=== PATIENT | female | born 1990 | race Caucasian/White ===

== ENCOUNTER 2020-01-30 14:22 | Emergency (ER) | payer BC ==
[~2020-01-30] VITALS: Ht 165.1 cm; Wt 70.9 kg
[2020-01-30 15:40] LABS: COLLECTION METHOD CLEAN CATCH
[2020-01-30 15:44] LABS: BASO # 0.1 (0.0-0.2); BASO % 0.4 % (0.0-2.0); EOS # 0.1 (0.0-0.7); EOS % 1.1 % (0-4.0); GRAN # 7.4 (1.4-6.5); GRAN % 65.3 % (42.2-75.2); LYMPH % 26.8 % (20.0-51.0); MEAN CELL VOLUME 97 fl (80.0-100.0); MEAN CORPUSCULAR HEMOGLOBIN 32 pg (27.0-31.0); MEAN CORPUSCULAR HGB CONC 33 g/dl (33.0-37.0); MEAN PLATELET VOLUME 10.3 fl (7.4-10.4); MONO # 0.7 (0.1-0.6); MONO % 6.1 % (1.7-9.3); PLATELET COUNT 215 K/mm3 (130-400); RED BLOOD COUNT 3.72 M/mm3 (4.10-5.30); REDCELL DISTRIBUTION WIDTH-CV 12.5 % (11.5-14.5)
[2020-01-30 15:54] LABS: MUCOUS Present /lpf; PH 6 (5-8); URINE APPEARANCE Cloudy; URINE BACTERIA None Seen /hpf; URINE BILIRUBIN Negative (NEGATIVE); URINE BLOOD Negative (NEGATIVE); URINE COLOR Yellow; URINE GLUCOSE Negative (NEGATIVE); URINE KETONE Negative (NEGATIVE); URINE LEUKOCYTE ESTERASE 1+ (NEGATIVE); URINE NITRATE Negative (NEGATIVE); URINE PROTEIN(semi-quant) Negative (NEGATIVE); URINE RBC 0-2 /hpf; URINE UROBILINOGEN Negative (NEGATIVE)
[2020-01-30 15:56] LABS: ALANINE AMINOTRANSFERASE 13 U/L (4-34); ALBUMIN 4.5 gm/dL (3.5-5.0); ALKALINE PHOSPHATASE 38 U/L (50-136); ANION GAP 7 mmol/L (7-16); AST,SGOT 28 U/L (15-37); BILIRUBIN,TOTAL 0.4 mg/dL (0.0-1.0); BLOOD UREA NITROGEN 18 mg/dL (7-17); CALCIUM 9.3 mg/dL (8.4-10.2); CARBON DIOXIDE 25 mmol/L (22-30); CHLORIDE 104 mmol/L (98-107); CREATININE, serum 0.79 (0.52-1.25); GLUCOSE 93 mg/dL (74-106); LIPASE 44 U/L (23-300); POTASSIUM 4.7 mmol/L (3.4-5.0); SODIUM 136 mmol/L (137-145); TOTAL PROTEIN 7.6 gm/dL (6.4-8.2)
[2020-01-30 16:06] LABS: C-REACTIVE PROTEIN < 0.5 mg/dL (0.0-0.9)
[2020-01-30] MEDS ORDERED: NORCO 325 MG-51 TAB PO (17:25)
[2020-01-30] MEDS ORDERED: OMNICEF 300MG300 MG PO (17:29)
[2020-01-30 17:57] VITALS: BP 110/64; PULSE 70; TEMP 98.4
== END 2020-01-30 18:04 | disposition home or self-care (01) ==
LOC: COL.ER 14:22
PROVIDERS: Family Medicine
DX: N83.209 Unspecified ovarian cyst, unspecified side (principal); Z88.0 Allergy status to penicillin
CPT/HCPCS: J2405; J7120; Q9967

== ENCOUNTER 2020-02-19 10:22 | Emergency (ER) | payer BC ==
[~2020-02-19] VITALS: Ht 165.1 cm; Wt 68.2 kg
[~2020-02-19 10:22] MED LIST: NORCO 325 MG-51 TAB PO; OMNICEF 300MG300 MG PO
[2020-02-19 10:40] LABS: COLLECTION METHOD CLEAN CATCH
[2020-02-19 10:48] LABS: PH 7 (5-8); URINE APPEARANCE Hazy; URINE BACTERIA None Seen /hpf; URINE BILIRUBIN Negative (NEGATIVE); URINE BLOOD Negative (NEGATIVE); URINE COLOR Yellow; URINE GLUCOSE Negative (NEGATIVE); URINE KETONE Negative (NEGATIVE); URINE LEUKOCYTE ESTERASE 1+ (NEGATIVE); URINE NITRATE Negative (NEGATIVE); URINE PROTEIN(semi-quant) Negative (NEGATIVE); URINE RBC None Seen /hpf; URINE UROBILINOGEN Negative (NEGATIVE)
[2020-02-19 11:16] LABS: BASO % 0.4 % (0.0-2.0); EOS # 0.1 (0.0-0.7); GRAN # 5.7 (1.4-6.5); GRAN % 67.2 % (42.2-75.2); HEMOGLOBIN 11.2 g/dl (12.5-16.0); LYMPH % 23.9 % (20.0-51.0); MEAN CELL VOLUME 97 fl (80.0-100.0); MEAN CORPUSCULAR HEMOGLOBIN 33 pg (27.0-31.0); MEAN CORPUSCULAR HGB CONC 33 g/dl (33.0-37.0); MEAN PLATELET VOLUME 9.6 fl (7.4-10.4); MONO # 0.6 (0.1-0.6); MONO % 7.1 % (1.7-9.3); PLATELET COUNT 229 K/mm3 (130-400); RED BLOOD COUNT 3.44 M/mm3 (4.10-5.30); REDCELL DISTRIBUTION WIDTH-CV 12.9 % (11.5-14.5)
[2020-02-19 11:21] LABS: HEMATOCRIT 33.5 % (37.0-47.0)
[2020-02-19 13:19] VITALS: BP 100/58; PULSE 72; TEMP 98.4
== END 2020-02-19 13:48 | disposition home or self-care (01) ==
LOC: COL.ER 10:22
PROVIDERS: Physician Assistant
DX: O26.891 Other specified pregnancy related conditions, first trimester (principal); R10.2 Pelvic and perineal pain; Z3A.00 Weeks of gestation of pregnancy not specified; Z88.0 Allergy status to penicillin

== ENCOUNTER → 2020-03-04 | Outpatient (RCR) | payer OTHER | LOC: WSOH | DX: O99.891 Other specified diseases and conditions complicating pregnancy (principal); O9A.211 Injury, poisoning and certain other consequences of external causes complicating pregnancy, first trimester; S60.221A Contusion of right hand, initial encounter; S60.511A Abrasion of right hand, initial encounter; N80.9 Endometriosis, unspecified; Z98.890 Other specified postprocedural states; Z3A.09 9 weeks gestation of pregnancy ==

== ENCOUNTER 2020-03-12 15:03 | Outpatient (RCR) | payer OTHER | END 2020-06-10 | disposition home or self-care (01) | LOC: WSOH | DX: S60.221D Contusion of right hand, subsequent encounter (principal); S60.511D Abrasion of right hand, subsequent encounter; Z87.891 Personal history of nicotine dependence; Z90.89 Acquired absence of other organs; Z98.82 Breast implant status; Z98.890 Other specified postprocedural states; Y99.0 Civilian activity done for income or pay ==

== ENCOUNTER 2020-09-18 14:24 | Outpatient (CLI) | payer BC ==
[~2020-09-18] VITALS: Ht 167.6 cm; Wt 86.4 kg
--- NOTE | 2020-09-18 14:05 | NUR ---
Pt arrived on unit ambulatory for extended monitoring after clinic appointment. Pt reports occasional contractions with pain down her right leg, denies any leaking of fluid and reports normal movement. EFM and toco monitors started. Vital signs WNL. Plan of care for extended monitoring reviewed with pt and boyfriend at the bedside. Both verbalized an understanding, agreed with the plan and states no questions or concerns at this time.
[2020-09-18] MEDS ORDERED: PRENATAL TABLET PO (14:56)
[2020-09-18 15:15] VITALS: BP 100/57; PULSE 75; TEMP 98.5
[2020-09-18 16:15] VITALS: BP 103/61; PULSE 71
--- NOTE | 2020-09-18 16:55 | NUR ---
Dr. Lang at the bedside. SVE done with no change. FHR tracing reviewed. Discharge instructions reviewed. Pt verbalized an understanding, agreed with the plan and states no questions or concerns at this time.
[2020-09-18 16:57] VITALS: BP 99/58; PULSE 71
== END 2020-09-18 17:05 | disposition home or self-care (01) ==
LOC: LDRO 14:24
DX: O26.893 Other specified pregnancy related conditions, third trimester (principal); R10.9 Unspecified abdominal pain; Z3A.36 36 weeks gestation of pregnancy

== ENCOUNTER 2020-09-24 11:57 | Inpatient (IN) | payer BC ==
[2020-09-24] VITALS (14 sets, daily range): BP systolic 89–126; BP diastolic 51–70; PULSE 65–82; TEMP 98.3–98.7
[~2020-09-24] VITALS: Ht 167.6 cm; Wt 87.7 kg
[~2020-09-24 11:57] MED LIST changes: +PRENATAL TABLET PO
--- NOTE | 2020-09-24 12:02 | NUR ---
Pt arrives on unit via wheelchair with FOB. Changed into a clean gown. EFM and toco applied. VSS. Pt states ctx since 0800 that have increased in frequency and intensity. Pt was seen in office at [facility] and orders to been evaluated in OB. SVE per this RN /-2. ARIS. Reports GFM. Admission assessment completed. Dr. Ordoñez on unit for scheduled c/s. VORB to admit pt. Provider to assess after procedure. IV started in LH. Labs drawn. LR infusing. UA obtained for MJ hx prior to . Pt updated on POC. Bed locked in low posiiton. Call light within reach. No questions or concerns at this time.
[2020-09-24 12:36] LABS: BASO % 0.2 % (0.0-2.0); EOS # 0.1 (0.0-0.7); EOS % 0.7 % (0-4.0); GRAN # 8.5 (1.4-6.5); GRAN % 72.9 % (42.2-75.2); HEMOGLOBIN 10.3 g/dl (12.5-16.0); LYMPH # 2.3 (1.2-3.4); LYMPH % 19.7 % (20.0-51.0); MEAN CELL VOLUME 93 fl (80.0-100.0); MEAN CORPUSCULAR HEMOGLOBIN 31 pg (27.0-31.0); MEAN CORPUSCULAR HGB CONC 33 g/dl (33.0-37.0); MONO # 0.7 (0.1-0.6); MONO % 6.1 % (1.7-9.3); PLATELET COUNT 219 K/mm3 (130-400); RED BLOOD COUNT 3.33 M/mm3 (4.10-5.30); REDCELL DISTRIBUTION WIDTH-CV 12.9 % (11.5-14.5)
--- NOTE | 2020-09-24 12:40 | NUR ---
Patient reports increased pressure. SVE unchanged. Dr. Ordoñez at bedside, updated on patient assessment. Dorcas Dias CRNA at bedside, patient assisted to sit on edge of bed. See epidural placement documentation. 1255- Patient repositioned WL following epidural. Dr. Ordoñez on unit, updated on patient assessment. Patient reports pain is improving with epidural.
[2020-09-24 12:47] LABS: HEMATOCRIT 30.8 % (37.0-47.0)
[2020-09-24 13:05] LABS: TRICYCLIC ANTIDEPRESS URINE NEGATIVE
--- NOTE | 2020-09-24 13:05 | NUR ---
Patient consents to COVID19 test. Collected per protocol and sent.
--- NOTE | 2020-09-24 13:25 | NUR ---
SVE 7/100/[address] Ordoñez updated on patient assessment. Bland catheter placed per protocol, pericare given. Patient repositioned.
--- NOTE | 2020-09-24 13:35 | NUR ---
Dr. Ordoñez at bedside, patient consents for AROM. AROM by Dr. Ordoñez at 1339 for clear fluid. SVE 7/100/0. Patient reports increased pressure. Physician remains on unit.
--- NOTE | 2020-09-24 13:45 | NUR ---
1345- Patient repotrs increased pressure. SVE per provider +2. Bland catheter removed prior to pushing, pericare given and nursery RN to bedside. Patient assisted to foot plates. 1352- Patient begins pushing with contractions with physician at bedside. 1354- of viable female attended by Dr. Casarez. Infant to mother's abdomen, care of infant to Devendra Velazquez RN. Apgars 8/9. 1359- spont delivery of placenta. Pitocin bolus started at 333ml/hr/protocol. Fundal massage by RN, firm at umbilicus. Perineum intact. Pericare given and ice pack applied. Patient updated on plan of care and safety reviewed.
[2020-09-25 02:09] VITALS: BP 115/68; PULSE 73; TEMP 98.2
[2020-09-25 07:11] VITALS: BP 98/64; PULSE 72; TEMP 98.1
--- NOTE | 2020-09-25 14:28 | NUR ---
[address] GUERRERO. ALL DISCHARGE INSTRUCTIONS GIVEN TO PATIENT AND
--- NOTE | 2020-09-27 14:31 | NUR ---
On 09/25/2020, director of social services met with patient and father of the baby as they were preparing to discharge home. Patient and father deny unmet needs or concerns. Worker collaborated with nursing staff who report no concerns.
--- NOTE | 2020-11-28 12:10 | NUR ---
Patient's infant's cord blood was negative for illegal drugs in system.
== END 2020-09-25 15:14 | disposition home or self-care (01) | DRG 807 ==
LOC: LDRO 11:57 → LDR 12:05 → LDRO 12:15 → LDR 12:16 → OB 12:16 → LDR 14:09 → OB 16:43
PROVIDERS: Student in an Organized Health Care Education/Training Program; ADMIT Obstetrics & Gynecology
PROC: 10E0XZZ Delivery of Products of Conception, External Approach (ICD-10-PCS; principal; 2020-09-24)
PROC: 10907ZC Drainage of Amniotic Fluid, Therapeutic from Products of Conception, Via Natural or Artificial Opening (ICD-10-PCS; 2020-09-24)
DX: O99.02 Anemia complicating childbirth (principal); Z37.0 Single live birth; D64.9 Anemia, unspecified; Z3A.37 37 weeks gestation of pregnancy; O99.344 Other mental disorders complicating childbirth; F32.9 Major depressive disorder, single episode, unspecified
CPT/HCPCS: J2590; J7120